=== PATIENT | male | born 1980 | race Asian ===

== ENCOUNTER 2017-04-02 18:36 | Emergency (ER) | payer SELFPAY ==
[~2017-04-02] VITALS: Ht 188 cm; Wt 83.9 kg
[2017-04-02 20:15] VITALS: BP 137/94
[2017-04-02] MEDS ORDERED: TDAP [DIPH/PERTUSSIS/TET] 0.5 ML VIAL IM ONE ×2 (21:00)
== END 2017-04-02 21:27 | disposition home or self-care (01) ==
LOC: ER 18:40
DX: S61.002A Unspecified open wound of left thumb without damage to nail, initial encounter (principal); Z23 Encounter for immunization; W26.8XXA Contact with other sharp object(s), not elsewhere classified, initial encounter; Y93.89 Activity, other specified; Y92.89 Other specified places as the place of occurrence of the external cause; Y99.8 Other external cause status
CPT/HCPCS: 90471; 90715; 99283; A4606; A6402; Z7610